=== PATIENT | male | born 1930 | race Caucasian/White ===

== ENCOUNTER → 2019-02-19 | Outpatient (CLI) | payer MEDICARE, OTHER ==
[~2019-02-19] MED LIST: REGADENOSON 0.4 MG/5 ML SYRINGE ONE
== END | disposition home or self-care (01) ==
LOC: CVU 09:36
PROVIDERS: ATTEND Internal Medicine Cardiovascular Disease
DX: I08.3 Combined rheumatic disorders of mitral, aortic and tricuspid valves (principal); I48.91 Unspecified atrial fibrillation; I65.23 Occlusion and stenosis of bilateral carotid arteries; I25.2 Old myocardial infarction; Z98.61 Coronary angioplasty status
CPT/HCPCS: 78452; 93017; 93306; 93880; A9502; J2785

== ENCOUNTER → 2020-04-16 | Outpatient (CLI) | payer MEDICARE, OTHER ==
[~2020-04-16] MED LIST changes: +DAPT500V3 IV; +OXYC5CAP2 PO; +PHEN100T90 PO; -REGADENOSON 0.4 MG/5 ML SYRINGE ONE; +RIVA10TA2 PO; +ROSU20TA2 PO; +TAMS-11 PO
== END | disposition home or self-care (01) ==
LOC: CFH 07:28
PROVIDERS: ATTEND Internal Medicine Cardiovascular Disease
DX: I08.3 Combined rheumatic disorders of mitral, aortic and tricuspid valves (principal); E78.5 Hyperlipidemia, unspecified
CPT/HCPCS: 93306